=== PATIENT | female | born 1945 | race Caucasian/White ===

== ENCOUNTER → 2016-11-14 | Outpatient (CLI) | payer MEDICARE, BC ==
[~2016-11-14] MED LIST: ALDACTONE25 MG PO; BIOTIN1 MG PO; CALCIUM + VITA1 EACH PO; COLACE100 MG PO; COZAAR100 MG PO; LOVENOX 4040 MG/0.4 SUB-Q; MIRALAX17 GM PO; MULTI-DAY VITA1 EACH PO; NEXIUM20 MG PO; PERCOCET 5-3251 EACH PO; TOPROL XL50 MG PO; VITAMIN D-32000 UNI1 PO; ZYRTEC10 MG PO
[2016-11-14 08:48] LABS: ALBUMIN 3.8 gm/dL (3.5-5.0); ALK PHOS 111 IU/L (33-138); ALT 26 IU/L (12-78); ANION GAP 10.7 (10.0-19.0); AST 19 IU/L (10-40); BLOOD UREA NITROGEN 10 mg/dL (6-24); CALCIUM 8.8 mg/dL (8.5-10.5); CHLORIDE 104 mMol/L (96-110); CO2 30 mMol/L (22-32); CREATININE 0.7 mg/dL (0.5-1.1); ESTIMATED GFR (MDRD EQUATION) > 60; POTASSIUM 3.7 mMol/L (3.7-5.1); SODIUM 141 mMol/L (135-145); TOTAL PROTEIN 7.4 g/dL (6.0-8.4)
[2016-11-14 08:49] LABS: TOTAL BILIRUBIN 0.5 mg/dL (0.0-1.5)
== END | disposition disaster alternative care site (69) ==
LOC: LNHI 08:29
PROVIDERS: Internal Medicine Interventional Cardiology
DX: R60.9 Edema, unspecified (principal); I10 Essential (primary) hypertension; E78.5 Hyperlipidemia, unspecified

== ENCOUNTER → 2017-03-15 | Outpatient (CLI) | payer MEDICARE, OTHER ==
[2017-03-15 11:05] LABS: INR - (THERAPEUTIC) 0.98 (0.92-1.07); PROTIME 10.3 SECONDS (9.8-11.4)
== END ==
LOC: LGSMG 10:55
PROVIDERS: Student in an Organized Health Care Education/Training Program
DX: Z01.818 Encounter for other preprocedural examination (principal)

== ENCOUNTER 2017-03-19 11:00 | Inpatient (IN) | payer MEDICARE, OTHER ==
[~2017-03-19] VITALS: Ht 162.6 cm; Wt 104.2 kg
--- NOTE | ~2017-03-19 | OR ---
PATIENT'S NAME: ELVIA CASTILLO [facility] AGE: 72 Y [address] ROOM: [place] [address] LOCATION: [facility] ADMIT DATE: 03/28/2017 OR/Procedure Report DISCHARGE DATE: FAMILY PHYSICIAN: RICH CHRISTENSEN MD ATTENDING PHYSICIAN: KENAN FLETCHER SURGEON: Kenan Fletcher MD MACHINE CAPTAIN: Lui Cornelius PA-C. DATE OF PROCEDURE: 03/28/2017 PREOPERATIVE DIAGNOSES: 1. Left ankle end-stage posttraumatic arthritis. 2. Shortened Achilles tendon/gastrocnemius equinus. POSTOPERATIVE DIAGNOSES: 1. Left ankle end-stage posttraumatic arthritis. 2. Shortened Achilles tendon/gastrocnemius equinus. PROCEDURE: 1. Left total ankle arthroplasty. 2. Left gastrocnemius recession procedure. 3. Use of intraoperative fluoroscopy, less than 1 hour. ANESTHESIA: General endotracheal anesthesia and peripheral nerve blocks. FLUIDS: See anesthesia report. ESTIMATED BLOOD LOSS: Minimal. TOURNIQUET: Left proximal thigh 250 mmHg. FLUIDS: See Anesthesia report. SPECIMEN: None. COMPLICATIONS: None. DISPOSITION: Stable in PACU. COUNTS: All counts correct. IMPLANTS: Left [place] STAR total ankle arthroplasty system with size small talus, size large tibia, size 8 mm polyethylene liner. INDICATIONS: Ms Castillo is a pleasant 72-year-old female who underwent the noted procedures above. The risks, benefits, and alternatives pursuing PATIENT'S NAME: ELVIA CASTILLO [facility] AGE: 72 Y [address] ROOM: [place] [address] LOCATION: [facility] ADMIT DATE: 03/28/2017 OR/Procedure Report DISCHARGE DATE: FAMILY PHYSICIAN: RICH CHRISTENSEN MD ATTENDING PHYSICIAN: KENAN FLETCHER surgical intervention were discussed the patient in detail. The patient elected to proceed with surgery. I marked the patient's left lower extremity indicating correct surgical site. DESCRIPTION OF PROCEDURE: The patient was brought from the holding area to the operating room. A time-out was performed. General endotracheal anesthesia was administered. Peripheral nerve blocks were previously placed. Antibiotics were also administered prophylactically. Left lower extremity was prepped and draped in a sterile fashion. I turned my attention to the left ankle. An Esmarch was used to exsanguinate the limb. The tourniquet inflated to 250 mmHg. I began with a gastrocnemius recession procedure. Using a 15 blade knife, I made an incision at the medial aspect of the leg through skin and subcutaneous tissue. I incised the fascia. I performed a gastrocnemius recession of the gastrocnemius aponeurosis. I achieved improved gastrocnemius excursion with this procedure. The wound was then copiously irrigated and closed in layers. I then turned my attention to the anterior aspect of the ankle. The patient had previous surgical incisions from surgery at the medial and lateral aspects of the ankle. Using a 15 blade knife, I made an anterior incision through skin and subcutaneous tissue. I very carefully dissect down to the extensor retinaculum. I sharply incised and tagged it with 0 Vicryl suture. I then introduced a jig to make my distal tibia cut. I introduced intraoperative fluoroscopy. I confirmed fluoroscopically the position of the distal tibia cut in the AP and lateral projections. I used an oscillating saw to perform this distal tibia cut. I then turned my attention to the talus. I introduced my jig and pinned it in place. I confirmed the position of the jig fluoroscopically. I then used an oscillating saw to perform my talus cuts. I performed a thorough debridement of the medial lateral gutters for which there is osteophyte formation present. The wound was then copiously irrigated with a normal sterile saline solution via pulsatile lavage. The talus component was implanted. I then turned my attention to the distal tibia. I drilled two ilsa holes in the distal tibia and planned my tibia implant. I sized my polyethylene liner. As I took more distal tibia in light of the fact that there were severe degenerative changes at the joint. I used a thicker polyethylene liner. The ankle range of motion with the trial liner was approximately 10 degrees of dorsiflexion past neutral to 40 degrees of plantar flexion. There was no lift- off the components PATIENT'S NAME: ELVIA CASTILLO [facility] AGE: 72 Y [address] ROOM: [id number] [place] [id number] LOCATION: [facility] ADMIT DATE: 03/28/2017 OR/Procedure Report DISCHARGE DATE: FAMILY PHYSICIAN: RICH CHRISTENSEN MD ATTENDING PHYSICIAN: KENAN FLETCHER The trial tibia polyethylene liner was removed and the final size 8 polyethylene liner was placed. The ankle was again taken through range of motion and the range of motion was the same. I backfill the distal tibia ilsa holes with bone graft that was harvested from the bony cuts earlier. A layered closure was undertaken. Extensor retinaculum was reapproximated with 0 Vicryl suture. The skin was approximated with 2-0 Vicryl suture. The skin was approximated with anita. The tourniquet was let down and the foot reperfused. The incision was dressed with Xeroform, followed by 4x4 and Webril. The patient was then placed into a well-padded short-leg splint with the ankle in neutral dorsiflexion. There was then transferred from the operating table onto the stretcher and extubated. She was brought to recovery room in stable condition. There were no intraoperative complications noted. Of note, my PA, Lui Cornelius PA-C, played an integral role in the intraoperative care of this patient. This included preoperative positioning, intraoperative expert retraction, and closing, dressing, and splinting functions. IMPRESSION: The patient is status post the noted procedures above. PLAN: The patient will be nonweightbearing on left lower extremity. Postoperative pain control from Percocet and IV morphine as needed for pain. Postoperative antibiotics were administered per routine. Physical Therapy and Occupational Therapy will be consulted for early ambulation and prevention of deconditioning. The hospitalist will be consulted for management of the patient's concomitant medical comorbidities. I will continue to follow the patient closely in the postoperative period. MD KAYLEE FOLEY/yuki /[id number] d: 03/28/17 1548 t: 03/29/17 0820, OPERATIVE SUMMARY
[~2017-03-19 11:00] MED LIST changes: -COLACE100 MG PO; -LOVENOX 4040 MG/0.4 SUB-Q; -MIRALAX17 GM PO; -PERCOCET 5-3251 EACH PO; -ZYRTEC10 MG PO
[2017-03-28] MEDS ORDERED: ZYRTEC10 MG PO (06:45)
[2017-03-29 05:39] LABS: HEMATOCRIT 35.1 % (33.0-46.0); HEMOGLOBIN 11.8 g/dL (10.0-15.0)
[2017-03-29] MEDS ORDERED: COLACE100 MG PO (14:36)
[2017-03-29] MEDS ORDERED: LOVENOX 4040 MG/0.4 SUB-Q (14:37)
[2017-03-29] MEDS ORDERED: MIRALAX17 GM PO (14:38)
[2017-03-29] MEDS ORDERED: PERCOCET 5-3251 EACH PO (14:39)
== END 2017-03-29 16:10 | disposition disaster alternative care site (69) | DRG 470 ==
LOC: G3N 03-28 06:04
PROVIDERS: ADMIT Orthopaedic Surgery Adult Reconstructive Orthopaedic Surgery
PROC: 3E10X8Z Irrigation of Skin and Mucous Membranes using Irrigating Substance (ICD-10-PCS; principal; 2017-03-28)
PROC: 0L8P3ZZ Division of Left Lower Leg Tendon, Percutaneous Approach (ICD-10-PCS; principal; 2017-03-28)
PROC: 0SRG0JA Replacement of Left Ankle Joint with Synthetic Substitute, Uncemented, Open Approach (ICD-10-PCS; principal; 2017-03-28)
DX: M19.072 Primary osteoarthritis, left ankle and foot (principal); Z68.41 Body mass index [BMI] 40.0-44.9, adult; I35.0 Nonrheumatic aortic (valve) stenosis; I10 Essential (primary) hypertension; E55.9 Vitamin D deficiency, unspecified; E66.01 Morbid (severe) obesity due to excess calories; E78.5 Hyperlipidemia, unspecified; K21.9 Gastro-esophageal reflux disease without esophagitis; M21.6X2 Other acquired deformities of left foot; M67.02 Short Achilles tendon (acquired), left ankle; Z86.718 Personal history of other venous thrombosis and embolism; J30.2 Other seasonal allergic rhinitis
CPT/HCPCS: C1776; G0008; J0690; J1100; J1650; J2001; J2250; J2405; J7120

== ENCOUNTER → 2017-03-22 | Outpatient (CLI) | payer MEDICARE, OTHER ==
[~2017-03-22] MED LIST changes: +COLACE100 MG PO; +LOVENOX 4040 MG/0.4 SUB-Q; +MIRALAX17 GM PO; +PERCOCET 5-3251 EACH PO; +ZYRTEC10 MG PO
== END ==
LOC: GNJRC 07:58
DX: M19.179 Post-traumatic osteoarthritis, unspecified ankle and foot (principal)